=== PATIENT | male | born 1995 | race African-American/Black ===

== ENCOUNTER 2017-03-13 10:54 | Emergency (ER) | payer MEDICAID ==
[~2017-03-13] VITALS: Ht 170.2 cm; Wt 104.3 kg
[~2017-03-13 10:54] MED LIST: ACETAMINOPHEN500 M3 ORAL; ALBUTEROL SULF8.5 GM INH; AMOXICILLIN500 MG ORAL; AQUAPHOR HEALIN50 GM TP; AQUAPHOR OINTM396 GM TP; ATARAX25 MG ORAL; BENADRYL25 M3 PO; BENADRYL50 MG ORAL; EUCERIN CREAM15 GM TOP; EUCERIN INTENS250 ML TP; GENTAMICIN SUL3.5 GM OP; HYDROCORT-PRAMO30 G1 TOPIC; HYDROCORTISON28.4 G2 TP; HYDROCORTISONE28 G5 TP; IBUPROFEN600 MG ORAL; IBUPROFEN800 MG PO; KENALOG 0.1% CR15 GM APPLIC; KENALOG 0.1% CR15 GM TOPIC; NKM; NO HOME MEDS; PERMETHRIN60 GM TOPIC; PREDNISONE20 MG ORAL; PREDNISONE50 MG PO; ROBAXIN500 MG PO; TAMIFLU75 MG PO; TYLENOL #31 TAB PO; VICODIN 5-5001 EACH PO; ZANTAC150 MG ORAL; ZOFRAN4 MG ORAL
[2017-03-13] MEDS ORDERED: Ketorolac 30mg Inj IV ONE (12:30)
[2017-03-13 13:15] LABS: EOSINOPHILS % (AUTO) 1.2 % (0.0-3.0); LYMPHOCYTES % (AUTO) 8.6 % (20.0-45.0); MEAN CORPUSCULAR HEMOGLOBIN 28.4 PG (27.0-31.0); MEAN CORPUSCULAR HGB CONC 32.3 G/DL (32.0-36.0); MEAN CORPUSCULAR VOLUME 88 FL (80-99); MONOCYTES % (AUTO) 9.4 % (1.0-10.0); NEUTROPHILS % (AUTO) 78.8 % (45.0-75.0); PLATELET COUNT 247 K/UL (150-450); RED BLOOD COUNT 6.06 M/UL (4.70-6.10); RED CELL DISTRIBUTION WIDTH 12.7 % (11.6-14.8); WHITE BLOOD COUNT 11.6 K/UL (4.8-10.8)
[2017-03-13 13:17] LABS: TROPONIN I < 0.30 ng/mL (<=0.30)
[2017-03-13 13:22] LABS: ALANINE AMINOTRANSFERASE 12 U/L (3-41); ALBUMIN/GLOBULIN RATIO 1.4 (1.0-2.7); ANION GAP 14 (5-15); ASPARTATE AMINO TRANSFERASE 15 U/L (5-40); CALCIUM 10.2 mg/dL (8.6-10.2); CARBON DIOXIDE 28 mEQ/L (20-30); CHLORIDE 98 mEQ/L (98-107); GLOMERULAR FILTRATION RATE > 60 mL/min (>60); HEMOLYSIS 4; SODIUM 140 mEQ/L (135-145); TOTAL PROTEIN 7.8 g/dL (6.6-8.7)
[2017-03-13 13:33] LABS: CKMB < 1.5 ng/mL (< 6.7)
[2017-03-13 13:35] VITALS: BP 118/54
[2017-03-13 13:43] LABS: BILIRUBIN,DIRECT 0.3 mg/dL (0.1-0.3)
[2017-03-13 13:45] VITALS: BP 118/54
[2017-03-13] MEDS ORDERED: Ketorolac 60mg Inj IM ONE (13:45)
--- NOTE | 2017-03-13 16:35 | Diagnostic Imaging Report ---
Indication: PAIN Technique: One view of the chest Comparison: 12/15/2012 Findings: Lungs and pleural spaces are clear. Heart size is normal. No significant change Impression: No acute process
--- NOTE | 2017-03-14 16:36 | Emergency Room Report ---
History of Present Illness General Chief Complaint: General Complaint Source: Patient Present Illness HPI 21YOM with chest tightness for 3 days. C/o pain also to left side of chest. Recent URI symptoms. Denies fever/chills, abd pain, headache, urinary complaint. Also c/o right knee pain. Denies associated redness, warmth to right knee. Denies any trauma to chest or knee. Denies falls. Patient with known ADHD, not on medication, here with grandmother. Allergies: Coded Allergies: EGG (Verified Allergy, Intermediate, 09/09/12) PINEAPPLE (Verified Allergy, Intermediate, 09/09/12) Wheat (Verified Allergy, Intermediate, 09/09/12) LACTULOSE (Verified Allergy, Mild, 09/09/12) STRAWBERRY (Verified Allergy, Mild, 09/09/12) FISH CONTAINING PRODUCTS (Verified Allergy, Unknown, 11/06/15) Patient History Past Medical History: other - ADHD Past Surgical History: none Pertinent Family History: none Social History: Denies: alcohol use, drug use, smoking Immunizations: UTD Reviewed Nursing Documentation: PMH: Agreed, PSxH: Agreed Nursing Documentation-PMH Past Medical History: No History, Except For Hx Asthma: Yes Review of Systems All Other Systems: negative except mentioned in HPI Physical Exam Vital Signs Date Time Temp Pulse Resp B/P Pulse Ox O2 Delivery O2 Flow Rate FiO2 03/13/17 11:09 100.4 125 16 120/89 99 Room Air Sp02 EP Interpretation: reviewed, normal General Appearance: normal inspection, well appearing, no apparent distress, alert, GCS 15, non-toxic Head: normocephalic, atraumatic Eyes: bilateral eye EOMI, bilateral eye PERRL ENT: normal ENT inspection, hearing grossly normal, normal voice Neck: normal inspection, full range of motion, supple, no bony tend Respiratory: normal inspection, lungs clear, normal breath sounds, no respiratory distress, no retraction, no wheezing, other - Chest wall ttp. no rash, chest symmetrical, palpation of chest normal Cardiovascular #1: regular rate, rhythm, no edema Gastrointestinal: normal inspection, normal bowel sounds, non tender, soft, no guarding, no hernia Genitourinary: no CVA tenderness Musculoskeletal: normal inspection, back normal, normal range of motion, Bev' s Sign negative, other - Right knee: ROM intact. No redness, warmth or effusion Neurologic: normal inspection, alert, oriented x3, responsive, plastering supervisor III-XII nml as tested, motor strength/tone normal, speech normal Psychiatric: normal inspection, judgement/insight normal, mood/affect normal Skin: normal inspection, normal color, no rash Lymphatic: normal inspection Medical Decision Making Diagnostic Impression: Primary Impression: KNEE PAIN Additional Impression: Chest wall pain ER Course Labs: Mild leuks. Mild elevation in bili. Knee pain Atraumatic Exam unremarkable for septic joint Leukocytosis - in setting of chest wall pain, URI symptoms, possibly costochondritiis - Lungs CTAB. No wheezing to suggest asthma exac or bronchitis - CXR does not show PNA Elevation in bili Abd soft, NT/ND. Unlikely acute cholecystitis Patient eloped from ER before results could be discussed and plan coordinated for discharge, followup with PMD Chest X-Ray Diagnostic Results EP Interpretation: Yes Findings: no consolidation, no effusion, no pneumothorax, no acute cardiopulmonary disease Number of Views: 1 Last Vital Signs Date Time Temp Pulse Resp B/P Pulse Ox O2 Delivery O2 Flow Rate FiO2 03/13/17 13:45 99.9 109 20 118/54 98 Room Air Status: improved Disposition: ELOPED Condition: Unknown Referrals: NOT CHOSEN IPA/,REFERRING (PCP) YANNI YEPEZ M.D. Mar 14, 2017 16:36
--- NOTE | 2017-03-15 21:18 | Cardiology Report ---
APPROVED REPORT EKG Measurement Heart [id number] Normal sinus rhythm with sinus arrhythmia Normal ECG
== END 2017-03-13 13:45 | disposition left against medical advice (07) ==
LOC: EMR 12:00
DX: R07.89 Other chest pain (principal); M25.561 Pain in right knee; Z91.012 Allergy to eggs; Z91.013 Allergy to seafood; Z91.018 Allergy to other foods; F90.9 Attention-deficit hyperactivity disorder, unspecified type; J45.909 Unspecified asthma, uncomplicated
CPT/HCPCS: 36415; 71010; 80053; 82248; 82550; 82553; 83690; 84484; 85025; 93005; 99283

== ENCOUNTER 2017-07-12 17:06 | Emergency (ER) | payer MEDICAID ==
[~2017-07-12] VITALS: Ht 175.3 cm; Wt 111.1 kg
[2017-07-12] MEDS ORDERED: PREDNISONE20 MG ORAL (17:27)
[2017-07-12] MEDS ORDERED: TRIAMCINOLONE A80 G1 TP (17:27)
[2017-07-12 17:51] VITALS: BP 126/57
--- NOTE | 2017-07-13 14:05 | Emergency Room Report ---
History of Present Illness General Chief Complaint: Skin Rash/Abscess Source: Patient, Medical Record Present Illness HPI The patient is a 21-year-old male presenting for rash. He states that he has a history of eczema and states that this feels the same. Rashes been noticed on the neck, elbows, knees, and around the mouth. He states that he has tried over -the-counter hydrocortisone which has not been helping. He has been unable to follow up with his primary doctor. He denies any pain or other symptoms including N, V, F, chills Allergies: Coded Allergies: EGG (Verified Allergy, Intermediate, 09/09/12) PINEAPPLE (Verified Allergy, Intermediate, 09/09/12) Wheat (Verified Allergy, Intermediate, 09/09/12) LACTULOSE (Verified Allergy, Mild, 09/09/12) STRAWBERRY (Verified Allergy, Mild, 09/09/12) FISH CONTAINING PRODUCTS (Verified Allergy, Unknown, 11/06/15) Patient History Past Medical History: see triage record Pertinent Family History: none Reviewed Nursing Documentation: PMH: Agreed, PSxH: Agreed Nursing Documentation-PMH Past Medical History: No History, Except For Hx Asthma: Yes Review of Systems All Other Systems: negative except mentioned in HPI Physical Exam Vital Signs Date Time Temp Pulse Resp B/P Pulse Ox O2 Delivery O2 Flow Rate FiO2 07/12/17 17:11 97.5 81 16 118/41 99 Room Air Sp02 EP Interpretation: reviewed, normal General Appearance: no apparent distress, alert, GCS 15, non-toxic Head: normocephalic, atraumatic Musculoskeletal: back normal, gait/station normal, normal range of motion, non- tender Neurologic: alert, oriented x3, responsive, motor strength/tone normal, sensory intact, speech normal Psychiatric: judgement/insight normal, memory normal, mood/affect normal, no suicidal/homicidal ideation Skin: rash - Erythematous thickened lesions to neck, elbows, and knees. Also erythema periorally Lymphatic: no adenopathy Medical Decision Making PA Attestation Dr. Burnham is my supervising physician. Patient management was discussed with my supervising physician Diagnostic Impression: Primary Impression: Eczema ER Course The patient is a 21-year-old male presenting for rash. Ddx considered include but not limited to insect bite, contact dermatitis, eczema, cellulitis History and PE consistent with eczema. He will be placed on short term oral steroids and is given prescription for topical steroids. He was told he needs to Fu with dermatology due to severity of eczema. He agrees. ER precautions given Last Vital Signs Date Time Temp Pulse Resp B/P Pulse Ox O2 Delivery O2 Flow Rate FiO2 07/12/17 17:51 97.5 68 16 126/57 99 Room Air Status: improved Disposition: HOME, SELF-CARE Condition: Improved Scripts Prednisone* (PREDNISONE*) 20 Mg Tablet 20 MG ORAL DAILY, #7 TAB 0 Refills Prov: MARCO DIGGS 07/12/17 Triamcinolone Acetonide (TRIAMCINOLONE ACETONIDE) 80 Gm Oint...g. 80 GM TP BID, #80 GM Prov: MARCO DIGGS 07/12/17 Referrals: NOT CHOSEN IPA/,REFERRING (PCP) Patient Instructions: Eczema Additional Instructions: I discussed my findings with the patient. All questions and concerns have been answered. Treatment and medication compliance have been addressed. I advised the patient that they need to follow up with PMD in 3-5 days. Return to ED if symptoms worsen, new symptoms arise, or if needed for any reason. Patient verbalized understanding of discharge instructions. Please follow up with dermatology as discussed MARCO DIGGS Jul 13, 2017 14:05
== END 2017-07-12 17:51 | disposition home or self-care (01) ==
LOC: EMR 17:40
DX: L30.9 Dermatitis, unspecified (principal); J45.909 Unspecified asthma, uncomplicated; Z91.012 Allergy to eggs; Z91.018 Allergy to other foods
CPT/HCPCS: 99284

== ENCOUNTER 2017-08-25 13:48 | Emergency (ER) | payer MEDICAID ==
[~2017-08-25] VITALS: Ht 175.3 cm; Wt 111.1 kg
[~2017-08-25 13:48] MED LIST changes: +TRIAMCINOLONE A80 G1 TP
--- NOTE | 2017-08-25 14:40 | Emergency Room Report ---
History of Present Illness General Chief Complaint: Laceration Source: Patient Present Illness HPI 21-year-old male presents emergency department with 2 lacerations to the index and left ring finger on the palmar aspect. Pt is right hand dominant. Patient states that 2 days ago he was washing dishes and he grabbed a knife on the wrong side. Patient denies bleeding at this time states he is burning sensation that he rates as 6/10 in severity. Patient denies erythema. Pt. states he is up-to-date with tetanus vaccinations. Denies taking blood thinning medications. He is requesting refill of his triamcinolone cream that he uses for his eczema. Denies numbness tingling or loss of sensation or gross motor movements of the extremities, incontinence of bowel or bladder. Denies CP , Palpitations, LOC, AMS, dizziness, Changes in Vision, Sensation, paresthesias , or a sudden severe headache. Allergies: Coded Allergies: EGG (Verified Allergy, Intermediate, 09/09/12) PINEAPPLE (Verified Allergy, Intermediate, 09/09/12) Wheat (Verified Allergy, Intermediate, 09/09/12) LACTULOSE (Verified Allergy, Mild, 09/09/12) STRAWBERRY (Verified Allergy, Mild, 09/09/12) FISH CONTAINING PRODUCTS (Verified Allergy, Unknown, 11/06/15) Patient History Past Medical History: see triage record Past Surgical History: none Pertinent Family History: none Immunizations: UTD Reviewed Nursing Documentation: PMH: Agreed, PSxH: Agreed Nursing Documentation-PMH Past Medical History: No History, Except For Hx Asthma: Yes Review of Systems All Other Systems: negative except mentioned in HPI Physical Exam Vital Signs Date Time Temp Pulse Resp B/P (MAP) Pulse Ox O2 Delivery O2 Flow Rate FiO2 08/25/17 14:09 97.9 75 18 120/86 98 Room Air Sp02 EP Interpretation: reviewed, normal General Appearance: no apparent distress, alert, GCS 15, non-toxic Head: normocephalic, atraumatic Eyes: bilateral eye normal inspection, bilateral eye PERRL ENT: hearing grossly normal, normal voice Neck: full range of motion Respiratory: lungs clear, normal breath sounds, speaking full sentences Cardiovascular #1: regular rate, rhythm, normal capillary refill Musculoskeletal: back normal, gait/station normal, normal range of motion - able to flex against resistance. , non-tender Neurologic: alert, oriented x3, responsive, motor strength/tone normal, sensory intact, speech normal Psychiatric: judgement/insight normal, memory normal, mood/affect normal Skin: normal color, warm/dry, well hydrated, rash - dry plaques to the flexural surfaces of the elbows, forearms, and knuckles bilaterally. , laceration - two finger lacerations: 1.5cm linear laceration to the palmar aspect of the left index finger, and 1.5cm linear laceration of the left ring finger, no bleeding at this time. FROM against resistance, no evidence of infeciton or fb. Lymphatic: no adenopathy Procedures Splinting Splinting #1: Consent: Verbal Location: left index finger Pre-Made Type: metal Splint: finger splint Pre-Proc Neuro Vasc Exam: normal Post-Proc Neuro Vasc Exam: normal Patient Tolerated: Well Complications: None Splinting #2: Consent: Verbal Location: left ring finger Pre-Made Type: metal Splint: finger splint Pre-Proc Neuro Vasc Exam: normal Post-Proc Neuro Vasc Exam: normal Patient Tolerated: Well Complications: None Laceration/Wound Repair Laceration/Wound Repair #1: Consent: Verbal Wound Location: upper extremity - left index Wound's Depth, Shape: superficial, linear Wound Length (cm): 1 Wound Explored: clean Irrigated w/ Saline (ccs): 500 Wound Repaired With: Steri-strips Sterile Dressing Applied?: Yes Splint Applied?: Yes Type of Splint Applied: figner splint. Sling Applied?: No Patient Tolerated: Well Complications: None Laceration/Wound Repair #2: Consent: Verbal Wound Location: upper extremity - left ring finger Wound's Depth, Shape: superficial, linear Wound Length (cm): 1 Wound Explored: clean Irrigated w/ Saline (ccs): 500 Wound Repaired With: Steri-strips Sterile Dressing Applied?: Yes Splint Applied?: Yes Type of Splint Applied: finger splint Sling Applied?: No Patient Tolerated: Well Complications: None Medical Decision Making PA Attestation Dr. Howell is my supervising Physician whom patient management has been discussed with. Diagnostic Impression: Primary Impression: Laceration Additional Impression: Eczema Qualified Codes: L20.82 - Flexural eczema ER Course 21-year-old male presents emergency department with 2 lacerations to the index and left ring finger on the palmar aspect. Pt is right hand dominant. Patient states that 2 days ago he was washing dishes and he grabbed a knife on the wrong side. Patient denies bleeding at this time states he is burning sensation that he rates as 6/10 in severity. Patient denies erythema. Pt. states he is up-to-date with tetanus vaccinations. Denies taking blood thinning medications. He is requesting refill of his triamcinolone cream that he uses for his eczema. Denies numbness tingling or loss of sensation or gross motor movements of the extremities, incontinence of bowel or bladder. Denies CP , Palpitations, LOC, AMS, dizziness, Changes in Vision, Sensation, paresthesias , or a sudden severe headache. Ddx considered but are not limited to laceration, tendon injury, cellulitis, amputation Vital signs: are WNL, pt. is afebrile H&PE are most consistent with: two finger lacerations each 1.5 cm in length. ORDERS: none required at this time, the diagnosis is clinical ED INTERVENTIONS: - The wound was copiously irrigated with normal saline, and explored for foreign body for which no FB was found. - The wound was approximated with Benzoin and steri-strips. Discussed with patient: That we make every effort to approximate the laceration as best as we can so that scarring will be as cosmetically pleasing as possible with our limited cosmetic skill set in the Emergency dept. Regardless of our best efforts there will be scarring after laceration repair. The extent of scarring is unknown at this time. DISCHARGE: At this time pt. is stable for d/c to home. Will provide printed patient care instructions, and any necessary prescriptions. Care plan and follow up instructions have been discussed with the patient prior to discharge. Last Vital Signs Date Time Temp Pulse Resp B/P (MAP) Pulse Ox O2 Delivery O2 Flow Rate FiO2 08/25/17 14:09 97.9 75 18 120/86 98 Room Air Disposition: HOME, SELF-CARE Condition: Stable Scripts Bacitracin/Polymyxin B Sulfate (BACITRACIN-POLYMYXIN OINTMENT) 28.35 Gm Oint...g. 1 APPLIC TP BID, #28.3 GM Prov: Kylah Hidalgo P.AEvelio 08/25/17 Cephalexin* (KEFLEX*) 500 Mg Capsule 500 MG ORAL EVERY 12 HOURS, #14 CAP 0 Refills Prov: Kylah Hidalgo 08/25/17 Referrals: NON PHYSICIAN (PCP) Departure Forms: Return to Work Return to Work Date: Aug 26, 2017 Work Restrictions: No Heavy Lifting Other Restrictions: limited use of Left hand, keep clean and dry. x 1 week. Return to Full Activity: Sep 02, 2017 Patient Instructions: Nonsutured Laceration Care Additional Instructions: Take medications as directed. Follow up with a Primary Care Provider in 3-5 days, even if your symptoms have resolved. --Please review list of primary care clinics, if you do not already have a primary care provider Return sooner to ED if new symptoms occur, or current symptoms become worse. - Please note that this Emergency Department Report was dictated using [employer] operator technology software, occasionally this can lead to erroneous entry secondary to interpretation by the dictation equipment. Kylah Hidalgo Aug 25, 2017 14:40
[2017-08-25] MEDS ORDERED: CEPHALEXIN500 MG ORAL (14:58)
[2017-08-25] MEDS ORDERED: BACITRACIN-P28.35 GM TP (14:58)
[2017-08-25 15:08] VITALS: BP 120/77
== END 2017-08-25 15:10 | disposition home or self-care (01) ==
LOC: EMR 14:20
DX: S61.211A Laceration without foreign body of left index finger without damage to nail, initial encounter (principal); S61.215A Laceration without foreign body of left ring finger without damage to nail, initial encounter; W26.0XXA Contact with knife, initial encounter; Y93.G1 Activity, food preparation and clean up; Y92.89 Other specified places as the place of occurrence of the external cause; L30.9 Dermatitis, unspecified; J45.909 Unspecified asthma, uncomplicated; Z91.012 Allergy to eggs; Z91.018 Allergy to other foods
CPT/HCPCS: 12001; 99284; Z7502

== ENCOUNTER 2017-10-11 03:09 | Emergency (ER) | payer MEDICAID ==
[~2017-10-11] VITALS: Ht 175.3 cm; Wt 111.1 kg
[~2017-10-11 03:09] MED LIST changes: +BACITRACIN-P28.35 GM TP; +CEPHALEXIN500 MG ORAL
[2017-10-11] MEDS ORDERED: DIPHENHYDRAMINE25 M1 ORAL (03:30)
[2017-10-11] MEDS ORDERED: PREDNISONE20 MG ORAL (03:30)
--- NOTE | 2017-10-11 03:31 | Emergency Room Report ---
History of Present Illness General Chief Complaint: Skin Rash/Abscess Source: Patient Present Illness HPI Is a 22-year-old male with a history of long-standing eczema. He said his been exacerbating for the last 3 weeks. No nausea no vomiting. Cmpu-xjg-ajgwnia steroid cream work initially but not anymore. [place] very itchy. He said Benadryl help when his mom and when he was little. Has not take anything for it. Not seen any Dr. Denies any fever chills denies any chest pain. Allergies: Coded Allergies: EGG (Verified Allergy, Intermediate, 09/09/12) PINEAPPLE (Verified Allergy, Intermediate, 09/09/12) Wheat (Verified Allergy, Intermediate, 09/09/12) LACTULOSE (Verified Allergy, Mild, 09/09/12) STRAWBERRY (Verified Allergy, Mild, 09/09/12) FISH CONTAINING PRODUCTS (Verified Allergy, Unknown, 11/06/15) Patient History Past Medical History: see triage record, old chart reviewed Past Surgical History: other Pertinent Family History: none Social History: Denies: smoking Immunizations: other Reviewed Nursing Documentation: PMH: Agreed, PSxH: Agreed Nursing Documentation-PMH Hx Asthma: Yes Review of Systems Eye: Denies: eye pain, blurred vision ENT: Denies: ear pain, nose congestion, throat swelling Respiratory: Denies: cough, shortness of breath Cardiovascular: Denies: chest pain, palpitations Gastrointestinal: Denies: abdominal pain, diarrhea, nausea, vomiting Musculoskeletal: Denies: back pain, joint pain Skin: Denies: rash Neurological: Denies: headache, numbness Endocrine: Denies: increased thirst, increased urine Hematologic/Lymphatic: Denies: easy bruising All Other Systems: negative except mentioned in HPI Physical Exam Vital Signs Date Time Temp Pulse Resp B/P (MAP) Pulse Ox O2 Delivery O2 Flow Rate FiO2 10/11/17 03:11 97.7 91 16 127/72 98 Room Air vitals normal Sp02 EP Interpretation: reviewed, normal General Appearance: well appearing, no apparent distress, alert Head: normocephalic, atraumatic Eyes: bilateral eye PERRL, bilateral eye EOMI ENT: hearing grossly normal, normal pharynx Neck: full range of motion, supple, no meningismus Respiratory: chest non-tender, lungs clear, normal breath sounds Cardiovascular #1: regular rate, rhythm, no murmur Gastrointestinal: normal bowel sounds, non tender, no mass, no organomegaly, no bruit, non-distended Musculoskeletal: back normal, gait/station normal, normal range of motion Psychiatric: mood/affect normal Skin: warm/dry, rash - diffuse eczema. There is excoriation from scratching. Medical Decision Making Diagnostic Impression: Primary Impression: Eczema ER Course This patient presents with eczema exacerbation. He would benefit from seeing a wood heel flap rubber or geomorphology teacher. We'll put on short course of steroid. No evidence of secondary infection. Last Vital Signs Date Time Temp Pulse Resp B/P (MAP) Pulse Ox O2 Delivery O2 Flow Rate FiO2 10/11/17 03:11 97.7 91 16 127/72 98 Room Air Status: improved Disposition: HOME, SELF-CARE Condition: Stable Scripts Prednisone* (PREDNISONE*) 20 Mg Tablet 60 MG ORAL DAILY, #15 TAB Prov: ROBERT LEGGETT M.D. 10/11/17 Diphenhydramine Hcl* (DIPHENHYDRAMINE HCL*) 25 Mg Capsule 50 MG ORAL Q6H Y for Itching, #30 CAP 0 Refills Prov: ROBERT LEGGETT M.D. 10/11/17 Additional Instructions: Followup with your doctor in a week. You may benefit from referral to see a wood heel flap rubber or a geomorphology teacher. Return if worse. ROBERT LEGGETT M.D. Oct 11, 2017 03:30
[2017-10-11 03:38] VITALS: BP 127/72
== END 2017-10-11 03:39 | disposition home or self-care (01) ==
LOC: EMR 03:26
DX: L30.9 Dermatitis, unspecified (principal); J45.909 Unspecified asthma, uncomplicated; Z91.012 Allergy to eggs; Z91.018 Allergy to other foods
CPT/HCPCS: 99284

== ENCOUNTER 2017-12-31 05:15 | Emergency (ER) | payer MEDICAID, OTHER ==
[~2017-12-31] VITALS: Ht 175.3 cm; Wt 117.9 kg
[~2017-12-31 05:15] MED LIST changes: +DIPHENHYDRAMINE25 M1 ORAL
--- NOTE | 2017-12-31 05:23 | Emergency Room Report ---
History of Present Illness General Chief Complaint: Flu Like Symptoms Source: Patient Present Illness HPI 22YOM walk in with "I think I have the flu" c/o dry cough, nasal congestion, rhinorrhea, and "weak" for 2 days since being outside without a jacket 3 days ago. History of asthma, non-smoker Doesnt have his pump for long time Denies fever/chills Got flu vaccine his year Allergies: Coded Allergies: EGG (Verified Allergy, Intermediate, 09/09/12) PINEAPPLE (Verified Allergy, Intermediate, 09/09/12) Wheat (Verified Allergy, Intermediate, 09/09/12) LACTULOSE (Verified Allergy, Mild, 09/09/12) STRAWBERRY (Verified Allergy, Mild, 09/09/12) FISH CONTAINING PRODUCTS (Verified Allergy, Unknown, 11/06/15) Patient History Past Medical History: asthma Past Surgical History: none Pertinent Family History: none Social History: Denies: smoking, alcohol use, drug use Immunizations: UTD Reviewed Nursing Documentation: PMH: Agreed, PSxH: Agreed Nursing Documentation-PMH Hx Asthma: Yes Review of Systems All Other Systems: negative except mentioned in HPI Physical Exam Vital Signs Date Time Temp Pulse Resp B/P (MAP) Pulse Ox O2 Delivery O2 Flow Rate FiO2 12/31/17 05:16 100.8 119 16 109/69 97 Room Air Sp02 EP Interpretation: reviewed, normal General Appearance: normal inspection, well appearing, no apparent distress, alert, GCS 15, non-toxic Head: normocephalic, atraumatic Eyes: bilateral eye PERRL, bilateral eye EOMI ENT: normal ENT inspection, hearing grossly normal, normal pharynx, no angioedema, normal voice, TMs + canals normal, uvula midline, moist mucus membranes Neck: normal inspection, full range of motion, supple, thyroid normal, no meningismus, no bony tend Respiratory: normal inspection, lungs clear, normal breath sounds, no rhonchi, no respiratory distress, no retraction, no accessory muscle use, speaking full sentences, wheezing Cardiovascular #1: regular rate, rhythm, no edema, no JVD, normal capillary refill Gastrointestinal: normal inspection, normal bowel sounds, non tender, soft, no mass, no peritonitis, non-distended, no guarding, no hernia, no pulsatile mass Genitourinary: no CVA tenderness Musculoskeletal: normal inspection, back normal, normal range of motion, no calf tenderness, pelvis stable, Bev's Sign negative Neurologic: normal inspection, alert, oriented x3, responsive, winding department supervisor III-XII nml as tested, motor strength/tone normal, cerebellar normal, normal gait, speech normal Psychiatric: normal inspection, judgement/insight normal, mood/affect normal, no suicidal/homicidal ideation, no delusions Skin: normal inspection, normal color, no rash Lymphatic: normal inspection, no adenopathy Medical Decision Making Diagnostic Impression: Primary Impression: URI (upper respiratory infection) Qualified Codes: J06.9 - Acute upper respiratory infection, unspecified Additional Impression: Asthma exacerbation Qualified Codes: J45.21 - Mild intermittent asthma with (acute) exacerbation ER Course Likely URI given nasal congestion, rhinorrhea, dry cough No fever/chills or myalgias to consider flu, plus he did get flu vaccine Mild wheezing on exam VSS, Afebrile Resolved with 1 neb ER course: Patient has remained stable during ED stay. Disposition: Patient is to be discharged to home. Prescriptions given are ventolin, flonase, prednisone Patient is instructed to follow up with their primary care doctor within 5 days. . Strict return precautions discussed with patient such as fever, chills, worsening/severe pain, nausea, vomiting, which may indicate severe illness. Patient verbalizes understanding and agrees with plan. Please note that this Emergency Department Report was dictated using [employer] analyst technology software, occasionally this can lead to erroneous entry secondary to interpretation by the dictation equipment Last Vital Signs Date Time Temp Pulse Resp B/P (MAP) Pulse Ox O2 Delivery O2 Flow Rate FiO2 12/31/17 05:16 100.8 119 16 109/69 97 Room Air Status: improved Disposition: HOME, SELF-CARE Scripts Prednisone* (PREDNISONE*) 20 Mg Tablet 40 MG ORAL DAILY for 3 Days, #6 TAB Prov: YANNI YEPEZ M.D. 12/31/17 Fluticasone Propionate (Flonase Allergy Relief) 9.9 Ml [place].susp 9.9 ML NS BID for 7 Days, #1 UNIT Prov: YANNI YEPEZ M.D. 12/31/17 Albuterol Sulfate (VENTOLIN HFA) 18 Gm Hfa.aer.ad 1 PUFF INH EVERY 6 HOURS for SOB, cough, #18 GM 0 Refills Prov: YANNI YEPEZ M.D. 12/31/17 YANNI YEPEZ M.D. Dec 31, 2017 05:23
[2017-12-31] MEDS ORDERED: FLONASE ALLERG9.9 ML NS (05:29)
[2017-12-31] MEDS ORDERED: VENTOLIN HFA18 GM INH (05:29)
[2017-12-31] MEDS ORDERED: PREDNISONE20 MG ORAL (05:29)
[2017-12-31 05:30] VITALS: BP 109/69
[2017-12-31 06:00] VITALS: BP 109/69
[2017-12-31] MEDS ORDERED: Albuterol ud Inhalation HHN ONE (06:00)
== END 2017-12-31 06:00 | disposition home or self-care (01) ==
LOC: EMR 05:37
DX: J06.9 Acute upper respiratory infection, unspecified (principal); Z91.018 Allergy to other foods
CPT/HCPCS: 94640; 99283

== ENCOUNTER 2018-01-21 21:39 | Emergency (ER) | payer OTHER ==
[~2018-01-21] VITALS: Ht 175.3 cm; Wt 108.9 kg
[~2018-01-21 21:39] MED LIST changes: +FLONASE ALLERG9.9 ML NS; +VENTOLIN HFA18 GM INH
[2018-01-21] MEDS ORDERED: PREDNISONE20 MG ORAL (22:02)
--- NOTE | 2018-01-21 22:02 | Emergency Room Report ---
History of Present Illness General Chief Complaint: Pain Source: Patient Present Illness HPI This is a 22-year-old male with a history of eczema. He presents with exacerbation of his eczema. Has been ongoing for about 2-3 weeks now. He said that his is that his rash to his body. He tried [id number] medication without relief. He has not seen his new doctor yet. No fever chills but no nausea no vomiting. Skin is dry and itching. Allergies: Coded Allergies: EGG (Verified Allergy, Intermediate, 09/09/12) PINEAPPLE (Verified Allergy, Intermediate, 09/09/12) Wheat (Verified Allergy, Intermediate, 09/09/12) LACTULOSE (Verified Allergy, Mild, 09/09/12) STRAWBERRY (Verified Allergy, Mild, 09/09/12) FISH CONTAINING PRODUCTS (Verified Allergy, Unknown, 11/06/15) Uncoded Allergies: PEANUTS (Allergy, Intermediate, 01/21/18) Patient History Past Medical History: see triage record, old chart reviewed Past Surgical History: none Pertinent Family History: none Social History: Denies: smoking Immunizations: other Reviewed Nursing Documentation: PMH: Agreed, PSxH: Agreed Nursing Documentation-PMH Hx Asthma: Yes History Of Psychiatric Problem: Yes - ADHD Review of Systems Eye: Denies: eye pain, blurred vision ENT: Denies: ear pain, nose congestion, throat swelling Respiratory: Denies: cough, shortness of breath Cardiovascular: Denies: chest pain, palpitations Gastrointestinal: Denies: abdominal pain, diarrhea, nausea, vomiting Musculoskeletal: Denies: back pain, joint pain Skin: Reports: rash Neurological: Denies: headache, numbness Endocrine: Denies: increased thirst, increased urine Hematologic/Lymphatic: Denies: easy bruising All Other Systems: negative except mentioned in HPI Physical Exam Vital Signs Date Time Temp Pulse Resp B/P (MAP) Pulse Ox O2 Delivery O2 Flow Rate FiO2 01/21/18 21:48 98.1 82 14 121/74 99 Room Air 98.1 vitals normal Sp02 EP Interpretation: reviewed, normal General Appearance: well appearing, no apparent distress, alert Head: normocephalic, atraumatic Eyes: bilateral eye PERRL, bilateral eye EOMI ENT: hearing grossly normal, normal pharynx Neck: full range of motion, supple, no meningismus Respiratory: chest non-tender, lungs clear, normal breath sounds Cardiovascular #1: regular rate, rhythm, no murmur Gastrointestinal: normal bowel sounds, non tender, no mass, no organomegaly, no bruit, non-distended Musculoskeletal: back normal, gait/station normal, normal range of motion Neurologic: alert, oriented x3 Psychiatric: mood/affect normal Skin: warm/dry, other - Skin is dry with eczema. No infection Medical Decision Making Diagnostic Impression: Primary Impression: Eczema ER Course Patient with eczema exacerbation. No evidence of cellulitis. No evidence of necrotizing fasciitis. We'll discharge home. We'll start dose of prednisone. He will need to see a expansion joint finisher. May benefit from immunomodulators. Last Vital Signs Date Time Temp Pulse Resp B/P (MAP) Pulse Ox O2 Delivery O2 Flow Rate FiO2 01/21/18 21:48 98.1 82 14 121/74 99 Room Air 98.1 Status: unchanged Disposition: HOME, SELF-CARE Condition: Stable Scripts Prednisone* (PREDNISONE*) 20 Mg Tablet 40 MG ORAL DAILY, #14 TAB Prov: ROBERT LEGGETT M.D. 01/21/18 Additional Instructions: Followup your DrEvelio in 7 days. You know need a referral to see a expansion joint finisher. Return if symptom worsen. ROBERT LEGGETT M.D. Jan 21, 2018 22:02
[2018-01-21 22:05] VITALS: BP 121/74
[2018-01-21 22:09] VITALS: BP 121/74
== END 2018-01-21 22:09 | disposition home or self-care (01) ==
LOC: EMR 22:03
DX: L30.9 Dermatitis, unspecified (principal); J45.909 Unspecified asthma, uncomplicated; F90.9 Attention-deficit hyperactivity disorder, unspecified type
CPT/HCPCS: 99283

== ENCOUNTER 2018-02-11 14:51 | Emergency (ER) | payer OTHER ==
[~2018-02-11] VITALS: Ht 175.3 cm; Wt 112.0 kg
--- NOTE | 2018-02-11 15:30 | Emergency Room Report ---
History of Present Illness General Chief Complaint: Skin Rash/Abscess Source: Patient Present Illness HPI 22 YO Male presents to the ED c/o rash all over his body x 2 weeks. 10/10 in severity itching. pt. reports taking prednisone with no appreciable relief or improvement of his symptoms. Patient states that he has had a history of eczema in the past she has an appointment scheduled with his primary care doctor for dermatology evaluation however his primary care appointment is not until the of this month. He denies fevers, chills, recent travel. Denies lesions/rashes elsewhere on the body. Denies new medications or body washes or creams. Denies swelling of the lips, tongue , throat or airway. Denies wheezing , or shortness of breath. Denies recent travel, recent illness or ill contacts. denies blisters, oral lesions, or sloughing of the skin. Patient denies history of frequent upper respiratory infections or history of autoimmune diseases. Allergies: Coded Allergies: EGG (Verified Allergy, Intermediate, 09/09/12) PINEAPPLE (Verified Allergy, Intermediate, 09/09/12) Wheat (Verified Allergy, Intermediate, 09/09/12) LACTULOSE (Verified Allergy, Mild, 09/09/12) STRAWBERRY (Verified Allergy, Mild, 09/09/12) FISH CONTAINING PRODUCTS (Verified Allergy, Unknown, 11/06/15) Uncoded Allergies: PEANUTS (Allergy, Intermediate, 01/21/18) Patient History Past Medical History: see triage record, asthma Past Surgical History: none Pertinent Family History: none Immunizations: UTD Reviewed Nursing Documentation: PMH: Agreed, PSxH: Agreed Nursing Documentation-PMH Past Medical History: No History, Except For Hx Asthma: Yes Review of Systems All Other Systems: negative except mentioned in HPI Physical Exam Vital Signs Date Time Temp Pulse Resp B/P (MAP) Pulse Ox O2 Delivery O2 Flow Rate FiO2 02/11/18 14:57 98.2 70 18 129/76 98 Room Air 98.2 Sp02 EP Interpretation: reviewed, normal General Appearance: no apparent distress, alert, GCS 15, non-toxic Head: normocephalic, atraumatic, other - rash: see skin note Eyes: bilateral eye normal inspection, bilateral eye PERRL ENT: hearing grossly normal, no angioedema, normal voice, other - no swelling of the lips or tongue Neck: full range of motion Respiratory: chest non-tender, lungs clear, normal breath sounds, speaking full sentences Cardiovascular #1: regular rate, rhythm, no edema, normal capillary refill Gastrointestinal: non tender Musculoskeletal: back normal, gait/station normal, normal range of motion, non- tender Neurologic: alert, oriented x3, responsive, motor strength/tone normal, sensory intact, speech normal, grossly normal Psychiatric: judgement/insight normal Skin: normal color, warm/dry, well hydrated, rash - Rash covering 90% of BSA dry scaly plaque no erythema, blisters or vesicles. Skin appears thickened. Lymphatic: no adenopathy Medical Decision Making PA Attestation Dr. Burnham is my supervising Physician whom patient management has been discussed with. Diagnostic Impression: Primary Impression: Eczema Additional Impression: Rash and other nonspecific skin eruption ER Course Pt. presents to the ED c/o rash all over his body x 2 weeks. 10/10 in severity itching. pt. reports taking prednisone with no appreciable relief or improvement of his symptoms. Patient states that he has had a history of eczema in the past she has an appointment scheduled with his primary care doctor for dermatology evaluation however his primary care appointment is not until the of this month. He denies fevers, chills, recent travel. Denies lesions/rashes elsewhere on the body. Denies new medications or body washes or creams. Denies swelling of the lips, tongue , throat or airway. Denies wheezing , or shortness of breath. Denies recent travel, recent illness or ill contacts. denies blisters, oral lesions, or sloughing of the skin. Ddx considered but are not limited to cellulitis, scabies, shingles, varicella, dermatitis, urticaria, eczema, tinea, viral exanthem, SJS, scleroderma Vital signs: are WNL, pt. is afebrile H&PE are most consistent with severe eczema generalized on almost all skin service area. No evidence of angioedema, allergic reaction or impending airway compromise. No evidence of infection. also suspicious for Possible scleroderma- needs Underwriting Service Representative eval and definitive diagnosis. ORDERS: none required at this time, the diagnosis is clinical ED INTERVENTIONS: None required at this time. -Discussed with patient that due to just finishing a seven-day course of prednisone I do not want him to experience adrenal insufficiency by prescribing more steroid when he had very minimal improvement of his symptoms with this intervention. Discussed with patient that ultimately he needs to see a cd reactor operator for definitive diagnosis and treatment management discussed with him that he may need oral medications to take regularly. DISCHARGE: At this time pt. is stable for d/c to home. Will provide printed patient care instructions, and any necessary prescriptions. Care plan and follow up instructions have been discussed with the patient prior to discharge. Last Vital Signs Date Time Temp Pulse Resp B/P (MAP) Pulse Ox O2 Delivery O2 Flow Rate FiO2 02/11/18 14:57 98.2 70 18 129/76 98 Room Air 98.2 Disposition: HOME, SELF-CARE Condition: Stable Scripts Bacitracin/Polymyxin B Sulfate (BACITRACIN-POLYMYXIN OINTMENT) 28.35 Gm Oint...g. 1 APPLIC TP BID, #28.3 GM Prov: Kylah Hidalgo 02/11/18 Triamcinolone Acet (Triamcinolone Acetonide) 60 Ml Lotion 60 ML TOPIC TID, #120 ML 2 Refills Prov: Kylah Hidalgo 02/11/18 Hydroxyzine HCl (Hydroxyzine HCl) 25 Mg Tablet 25 MG ORAL FOUR TIMES A DAY, #20 TAB Prov: Kylah Hidalgo 02/11/18 Patient Instructions: Rash Additional Instructions: Take medications as directed. Urgent Dermatology evaluation and management -- It is recommended that you are evaluated by a cd reactor operator due to the extent of your disease, and no response to both conservative and standard primary treatments ( steroid creams and oral prednisone.) evaluation is necessary for correct identification, to prevent worsening of your symptoms which can lead to infection. Refrain from scratching as much as possible, monitor your skin daily for signs of infection such as redness, hot to the touch. Return sooner to ED if new symptoms occur, or current symptoms become worse. Do not drink alcohol, drive, or operate heavy machinery while taking Hydroxyzine / Atarax as this may cause drowsiness. - Please note that this Emergency Department Report was dictated using [employer] room worker technology software, occasionally this can lead to erroneous entry secondary to interpretation by the dictation equipment. Kylah Hidalgo Feb 11, 2018 15:30
[2018-02-11] MEDS ORDERED: ATARAX25 MG ORAL (15:33)
[2018-02-11] MEDS ORDERED: KENALOG 0.1% LO60 ML TOPIC (15:33)
[2018-02-11] MEDS ORDERED: BACITRACIN-P28.35 GM TP (15:34)
[2018-02-11 19:31] VITALS: BP 129/76
[2018-02-11 19:33] VITALS: BP 129/76
== END 2018-02-11 16:00 | disposition home or self-care (01) ==
LOC: EMR 15:51
DX: L30.9 Dermatitis, unspecified (principal); J45.909 Unspecified asthma, uncomplicated; Z91.012 Allergy to eggs; Z91.010 Allergy to peanuts; Z91.018 Allergy to other foods
CPT/HCPCS: 99284

== ENCOUNTER 2018-03-20 12:44 | Emergency (ER) | payer OTHER ==
[~2018-03-20] VITALS: Ht 175.3 cm; Wt 117.9 kg
[~2018-03-20 12:44] MED LIST changes: +KENALOG 0.1% LO60 ML TOPIC
[2018-03-20 13:08] VITALS: BP 129/75
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
[2018-03-20] MEDS ORDERED: KENALOG 0.1% LO60 ML APPLIC (13:21)
[2018-03-20 13:30] VITALS: BP 129/75
== END 2018-03-20 13:30 | disposition home or self-care (01) ==
LOC: EMR 13:28
DX: L30.9 Dermatitis, unspecified (principal); J45.909 Unspecified asthma, uncomplicated; Z91.012 Allergy to eggs; Z91.010 Allergy to peanuts; Z91.018 Allergy to other foods
CPT/HCPCS: 99283

== ENCOUNTER 2018-06-16 22:45 | Emergency (ER) | payer OTHER ==
[~2018-06-16] VITALS: Ht 175.3 cm; Wt 111.1 kg
[~2018-06-16 22:45] MED LIST changes: +KENALOG 0.1% LO60 ML APPLIC
[2018-06-16] MEDS ORDERED: NKM (22:55)
[2018-06-16 23:05] VITALS: BP 129/71
[2018-06-16] MEDS ORDERED: PREDNISONE20 MG ORAL (23:25)
[2018-06-16] MEDS ORDERED: IBUPROFEN600 MG ORAL (23:25)
[2018-06-16] MEDS ORDERED: AUGMENTIN 875-1 EAC1 ORAL (23:25)
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
[2018-06-17] MEDS ORDERED: BISACODYL5 MG RECTAL (00:11)
[2018-06-17] MEDS ORDERED: ACETAMINOP160 MG/5 M GT (00:11)
[2018-06-17] MEDS ORDERED: DOCUSATE SODIU100 MG GT (00:11)
[2018-06-17] MEDS ORDERED: SPIRONOLACTONE25 MG ORAL (00:11)
[2018-06-17] MEDS ORDERED: CATAPRES0.1 MG GT (00:11)
[2018-06-17] MEDS ORDERED: CALCIUM CARBON650 M2 GT (00:11)
[2018-06-17] MEDS ORDERED: BACLOFEN10 MG GT (00:11)
[2018-06-17] MEDS ORDERED: VITAMIN D1000 UNI1 GT (00:11)
[2018-06-17] MEDS ORDERED: CRANBERRY200 M1 PO (00:11)
[2018-06-17] MEDS ORDERED: DUONEB 0.5-3(2.53 ML HHN (00:11)
[2018-06-17] MEDS ORDERED: SPIRONOLACTONE25 MG GT (00:11)
[2018-06-17] MEDS ORDERED: ARTIFICIAL TEA1 EAC2 OP (00:11)
[2018-06-17 00:30] VITALS: BP 129/71
== END 2018-06-17 00:30 | disposition home or self-care (01) ==
LOC: EMR 23:07
DX: J02.9 Acute pharyngitis, unspecified (principal); J45.909 Unspecified asthma, uncomplicated; Z91.012 Allergy to eggs; Z91.018 Allergy to other foods; Z91.010 Allergy to peanuts
CPT/HCPCS: 99283

== ENCOUNTER 2018-12-30 22:27 | Emergency (ER) | payer OTHER ==
[~2018-12-30] VITALS: Ht 175.3 cm; Wt 113.4 kg
[~2018-12-30 22:27] MED LIST changes: +ACETAMINOP160 MG/5 M GT; +ARTIFICIAL TEA1 EAC2 OP; +AUGMENTIN 875-1 EAC1 ORAL; +BACLOFEN10 MG GT; +BISACODYL5 MG RECTAL; +CALCIUM CARBON650 M2 GT; +CATAPRES0.1 MG GT; +CRANBERRY200 M1 PO; +DOCUSATE SODIU100 MG GT; +DUONEB 0.5-3(2.53 ML HHN; +SPIRONOLACTONE25 MG GT; +SPIRONOLACTONE25 MG ORAL; +VITAMIN D1000 UNI1 GT
--- NOTE | 2018-12-30 22:38 | NUR ---
ED Nurse Note: Pt woke up this morning and found his neck has big area of rash. Pt is AO x 4times, VSS, on room air no distress. KELLYD seen Pt at bedside.
[2018-12-30 22:39] VITALS: BP 128/88
[2018-12-30] MEDS ORDERED: MUPIROCIN22 GM TOPIC (22:48)
[2018-12-30] MEDS ORDERED: DOXYCYCLINE MO100 MG ORAL (22:48)
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
[2018-12-30 22:58] VITALS: BP 128/88
--- NOTE | 2018-12-30 22:59 | NUR ---
ED Nurse Note: Pt claered DC by TONNY. Pt is AO x 4times, VSS, on room air no distress. ID bend removed. Belongings given back to Pt. DC and Meds instructions given to Pt, Pt understood well. Pt walked out unit with steady gait.
== END 2018-12-30 23:07 | disposition home or self-care (01) ==
LOC: EMR 22:47
DX: L03.221 Cellulitis of neck (principal); J45.909 Unspecified asthma, uncomplicated; Z91.010 Allergy to peanuts; Z91.012 Allergy to eggs; Z91.018 Allergy to other foods
CPT/HCPCS: 99283

== ENCOUNTER 2018-12-31 08:39 | Inpatient (IN) | payer OTHER ==
[2018-12-31] VITALS (10 sets, daily range): BP systolic 115–145; BP diastolic 61–86
[~2018-12-31] VITALS: Ht 175.3 cm; Wt 113.4 kg
[~2018-12-31 08:39] MED LIST changes: +DOXYCYCLINE MO100 MG ORAL; +MUPIROCIN22 GM TOPIC
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
[2018-12-31] MEDS: Ipratropium 0.02% Inh Soln 2.5ml UD HHN SCH ×3 (09:14→09:48)
[2018-12-31] MEDS: Albuterol ud Inhalation HHN SCH ×3 (09:15→09:48)
[2018-12-31 09:27] LABS: BASOPHILS % (AUTO) 7.6 % (0.0-2.0); EOSINOPHILS % (AUTO) 3.5 % (0.0-3.0); HEMATOCRIT 52.6 % (42.0-52.0); HEMOGLOBIN 17.9 G/DL (14.2-18.0); LYMPHOCYTES % (AUTO) 16.2 % (20.0-45.0); MEAN CORPUSCULAR VOLUME 86 FL (80-99); NEUTROPHILS % (AUTO) 53.8 % (45.0-75.0); PLATELET COUNT 193 K/UL (150-450); RED BLOOD COUNT 6.15 M/UL (4.70-6.10); WHITE BLOOD COUNT 10.1 K/UL (4.8-10.8)
[2018-12-31 10:34] LABS: ANION GAP 14 mmol/L (5-15); BLOOD UREA NITROGEN 16 mg/dL (7-18); CALCIUM 10.2 MG/DL (8.5-10.1); CARBON DIOXIDE 24 MMOL/L (21-32); CHLORIDE 101 MMOL/L (98-107); CREATININE 1.2 MG/DL (0.55-1.30); SODIUM 139 MMOL/L (136-145)
[2018-12-31] MEDS ORDERED: Albuterol ud Inhalation HHN ONE (11:00)
[2018-12-31 11:05] LABS: ALANINE AMINOTRANSFERASE 47 U/L (12-78); ALBUMIN 3.8 G/DL (3.4-5.0); ALBUMIN/GLOBULIN RATIO 0.8 (1.0-2.7); ALKALINE PHOSPHATASE 86 U/L (46-116); ASPARTATE AMINO TRANSFERASE 81 U/L (15-37); BILIRUBIN,TOTAL 0.8 MG/DL (0.2-1.0); CKMB 74.4 NG/ML (0.0-3.6); CREATINE KINASE 894 U/L (26-308)
[2018-12-31] MEDS ORDERED: Ketorolac 30mg Inj IV ONE (11:15)
--- NOTE | 2018-12-31 11:17 | Diagnostic Imaging Report ---
Indication: Dyspnea Comparison: 03/13/2017 A single view chest radiograph was obtained. Findings: Cardiomediastinal appearance is within normal limits for age. The lungs are clear. Pulmonary vascularity is appropriate. The diaphragmatic contour is smooth and costophrenic angles are sharp. No pleural effusions are identified. The bones are unremarkable. Impression: No acute findings
--- NOTE | 2018-12-31 13:57 | Consultation ---
History of Present Illness General Date patient seen: Dec 31, 2018 Time patient seen: 13:48 Chief Complaint: Chest Pain Reason for Consultation: Chest pain and shortness of breath Present Illness HPI 23 y/o male w/ hx childhood asthma, daily marijuana use with development of substernal chest pain this morning, worse with walking and associated dyspnea. Possibly felt like similar asthma exacerbations years ago. Was seen in ED and felt better after neb treatments. ECG w/ nonspecific twave abnormalities but no evidence of STEMI. Trop noted to be almost 20. No chest pain now. Having TTE in ED and EF in 60s. Notes he developed a rash on his neck of unclear etiology. No fever or chills. Was felt to be eczema. Allergies: Coded Allergies: EGG (Verified Allergy, Intermediate, 09/09/12) PINEAPPLE (Verified Allergy, Intermediate, 09/09/12) Wheat (Verified Allergy, Intermediate, 09/09/12) LACTULOSE (Verified Allergy, Mild, 09/09/12) STRAWBERRY (Verified Allergy, Mild, 09/09/12) FISH CONTAINING PRODUCTS (Verified Allergy, Unknown, 11/06/15) Uncoded Allergies: PEANUTS (Allergy, Intermediate, 01/21/18) Medication History Scheduled Doxycycline Monohydrate* (Doxycycline Monohydrate*), 100 MG ORAL Q12H Mupirocin* (Mupirocin*), 1 APPLIC TOPIC THREE TIMES A DAY Discontinued Medications Acetaminophen 160MG/5ML* (Acetaminophen*), 20.3 ML GT Q4HR PRN for Fever/ Headache/Mild Pain, (Reported) Discontinued Reason: Therapy completed Albuterol Sulfate (Ventolin Hfa), 1 PUFF INH EVERY 6 HOURS Discontinued Reason: Therapy completed Albuterol Sulfate* (Albuterol Sulfate Mdi*), 2 PUFF INH Q4H, (Reported) Discontinued Reason: Therapy completed Amoxicillin/Potassium Clav 875-125* (Augmentin 875-125 Tablet*), 1 TAB ORAL TWICE A DAY Discontinued Reason: Therapy completed Bacitracin/Polymyxin B Sulfate (Bacitracin-Polymyxin Ointment), 1 APPLIC TP BID Discontinued Reason: Therapy completed Baclofen* (Baclofen*), 10 MG GT THREE TIMES A DAY, (Reported) Discontinued Reason: Therapy completed Bisacodyl* (Dulcolax*), 10 MG RECTAL DAILY, (Reported) Discontinued Reason: Therapy completed Calcium Carbonate (Calcium Carbonate), 1,000 MG GT BID, (Reported) Discontinued Reason: Therapy completed Cholecalciferol (Vitamin D3)* (Vitamin D*), 50,000 UNIT GT ONCE A WEEK, ( Reported) Discontinued Reason: Therapy completed Clonidine Hcl* (Catapres*), 0.1 MG GT EVERY 6 HOURS, (Reported) Discontinued Reason: Therapy completed Cranberry Extract (Cranberry), 200 MG PO, (Reported) Discontinued Reason: Therapy completed Dextran 70/Hypromellose (Artificial Tears), 1 EACH OP Q4HR, (Reported) Discontinued Reason: Therapy completed Diphenhydramine Hcl* (Diphenhydramine Hcl*), 50 MG ORAL Q6H PRN for Itching Discontinued Reason: Therapy completed Docusate Sodium* (Docusate Sodium*), 100 MG GT BID, (Reported) Discontinued Reason: Therapy completed Fluticasone Propionate (Flonase Allergy Relief), 9.9 ML NS BID Discontinued Reason: Therapy completed Hydroxyzine HCl (Hydroxyzine HCl), 25 MG ORAL FOUR TIMES A DAY Discontinued Reason: Therapy completed Ibuprofen* (Motrin*), 600 MG ORAL Q8H PRN for For Pain Discontinued Reason: Therapy completed Ipratropium/Albuterol Sulfate (DuoNeb 0.5-3(2.5)mg/3ml), 3 ML HHN, (Reported) Discontinued Reason: Therapy completed No Known Medications* (NKM - No Known Medications*), 0 ., (Reported) Discontinued Reason: Therapy completed Prednisone* (Prednisone*), 60 MG ORAL DAILY Discontinued Reason: Therapy completed Prednisone* (Prednisone*), 40 MG ORAL DAILY Discontinued Reason: Therapy completed Prednisone* (Prednisone*), 40 MG ORAL DAILY Discontinued Reason: Therapy completed Prednisone* (Prednisone*), 20 MG ORAL BID Discontinued Reason: Therapy completed Spironolactone* (Aldactone*), 25 MG ORAL DAILY, (Reported) Discontinued Reason: Therapy completed Spironolactone* (Aldactone*), 25 MG GT DAILY, (Reported) Discontinued Reason: Therapy completed Triamcinolone Acet (Triamcinolone Acetonide), 60 ML TOPIC TID Discontinued Reason: Therapy completed Triamcinolone Acet (Triamcinolone Acetonide), 1 APPLIC APPLIC BID Discontinued Reason: Therapy completed Patient History History Provided By: Patient Healthcare decision maker Resuscitation status Advanced Directive on File Past Medical/Surgical History Past Medical/Surgical History: (1) allergic reaction (2) atopic dermatitis Review of Systems Constitutional: Reports: no symptoms Eye: Reports: no symptoms ENT: Reports: no symptoms Respiratory: Reports: shortness of breath Cardiovascular: Reports: chest pain Gastrointestinal: Reports: no symptoms Genitourinary: Reports: no symptoms Musculoskeletal: Reports: no symptoms Skin: Reports: rash Psychiatric: Reports: no symptoms Neurological: Reports: no symptoms Endocrine: Reports: no symptoms Hematologic/Lymphatic: Reports: no symptoms Physical Exam General Appearance: WD/WN, no apparent distress, alert HEENT: normocephalic, atraumatic, anicteric, mucous membranes moist, PERRL Neck: other - nodular rash on neck, somewhat fluid-filled Respiratory/Chest: chest wall non-tender, lungs clear, normal breath sounds, no respiratory distress, no accessory muscle use Breasts: other - gynecomastia Cardiovascular/Chest: normal rate, regular rhythm Abdomen: normal bowel sounds, non tender, soft Neurologic: hydraulic press tender II-XII grossly normal, alert, oriented x 3 Last 24 Hour Vital Signs Date Time Temp Pulse Resp B/P (MAP) Pulse Ox O2 Delivery O2 Flow Rate FiO2 12/31/18 12:39 85 24 Room Air 12/31/18 12:39 85 24 145/85 100 12/31/18 11:14 78 15 99 Room Air 21 12/31/18 10:58 67 18 98 Room Air 21 12/31/18 10:06 82 22 Room Air 100 12/31/18 10:06 76 16 99 Room Air 21 12/31/18 10:06 98.0 82 22 100 Room Air 12/31/18 09:48 71 16 99 Room Air 21 12/31/18 09:47 71 16 99 Room Air 21 12/31/18 09:30 66 22 99 Room Air 21 12/31/18 09:29 66 24 99 Room Air 21 12/31/18 09:14 52 24 99 Room Air 21 12/31/18 08:42 98.4 72 18 149/87 100 12/31/18 07:12 52 24 Room Air Laboratory Tests Test 12/31/18 09:05 12/31/18 09:55 12/31/18 12:30 White Blood Count 10.1 K/UL (4.8-10.8) Red Blood Count 6.15 M/UL (4.70-6.10) H Hemoglobin 17.9 G/DL (14.2-18.0) Hematocrit 52.6 % (42.0-52.0) H Mean Corpuscular Volume 86 FL (80-99) Mean Corpuscular Hemoglobin 29.1 PG (27.0-31.0) Mean Corpuscular Hemoglobin Concent 34.0 G/DL (32.0-36.0) Red Cell Distribution Width 12.0 % (11.6-14.8) Platelet Count 193 K/UL (150-450) Mean Platelet Volume 8.3 FL (6.5-10.1) Neutrophils (%) (Auto) 53.8 % (45.0-75.0) Lymphocytes (%) (Auto) 16.2 % (20.0-45.0) L Monocytes (%) (Auto) 19.0 % (1.0-10.0) H Eosinophils (%) (Auto) 3.5 % (0.0-3.0) H Basophils (%) (Auto) 7.6 % (0.0-2.0) H Sodium Level 139 MMOL/L (136-145) Potassium Level 4.0 MMOL/L (3.5-5.1) Chloride Level 101 MMOL/L (98-107) Carbon Dioxide Level 24 MMOL/L (21-32) Anion Gap 14 mmol/L (5-15) Blood Urea Nitrogen 16 mg/dL (7-18) Creatinine 1.2 MG/DL (0.55-1.30) Estimat Glomerular Filtration Rate > 60 mL/min (>60) Glucose Level 108 MG/DL (74-106) H Calcium Level 10.2 MG/DL (8.5-10.1) H Total Bilirubin 0.8 MG/DL (0.2-1.0) Aspartate Amino Transf (AST/SGOT) 81 U/L (15-37) H Alanine Aminotransferase (ALT/SGPT) 47 U/L (12-78) Alkaline Phosphatase 86 U/L (46-116) Total Creatine Kinase 894 U/L (26-308) H Creatine Kinase MB 74.4 NG/ML (0.0-3.6) H Creatine Kinase MB Relative Index 8.3 Troponin I 19.701 ng/mL (0.000-0.056) Total Protein 8.8 G/DL (6.4-8.2) H Albumin 3.8 G/DL (3.4-5.0) Globulin 5.0 g/dL Albumin/Globulin Ratio 0.8 (1.0-2.7) L Urine Opiates Screen Negative (NEGATIVE) Urine Barbiturates Screen Negative (NEGATIVE) Phencyclidine (PCP) Screen Negative (NEGATIVE) Urine Amphetamines Screen Negative (NEGATIVE) Urine Benzodiazepines Screen Negative (NEGATIVE) Urine Cocaine Screen Negative (NEGATIVE) Urine Marijuana (THC) Screen Positive (NEGATIVE) H Height (Feet): 5 Height (Inches): 9.00 Weight (Pounds): 250 Assessment/Plan Assessment/Plan Problem List: 1. Acute chest pain with shortness of breath 2. Troponin elevation 3. Possible myocarditis 4. Nonspecific ECG changes 5. Neck rash - ?allergic vs viral 6. Childhood asthma w/o clear exacerbation 7. Daily marijuana use Plan: -repeat troponin -cardiac monitoring -f/u TTE -check ddimer, ESR, CRP -cardiology to evaluate -daily ECG Discussed with ER Time: 65 min Josh Rizzo MD Dec 31, 2018 13:57
--- NOTE | 2018-12-31 14:10 | History and Physical ---
History of Present Illness General Date patient seen: Dec 31, 2018 Time patient seen: 14:00 Reason for Hospitalization: Chest Pain Present Illness HPI 23 y/o male with history of eczema, childhood asthma, daily marijuana use who presented development of substernal chest pain starting this morning, worse with walking and associated dyspnea. Similar symptoms to asthma exacerbation. Was seen in ED and felt better after neb treatments. ECG w/ nonspecific twave abnormalities but no evidence of STEMI. Trop noted to be almost 20. Patient referred for admission to the ICU, evaluated by footwear stitcher. Cardiology consulted in ED PMHx:Asthma and eczema SH: Marijuana use Family History: No cardiac disease reported Allergies: Coded Allergies: EGG (Verified Allergy, Intermediate, 09/09/12) PINEAPPLE (Verified Allergy, Intermediate, 09/09/12) Wheat (Verified Allergy, Intermediate, 09/09/12) LACTULOSE (Verified Allergy, Mild, 09/09/12) STRAWBERRY (Verified Allergy, Mild, 09/09/12) FISH CONTAINING PRODUCTS (Verified Allergy, Unknown, 11/06/15) Uncoded Allergies: PEANUTS (Allergy, Intermediate, 01/21/18) Medication History Scheduled Doxycycline Monohydrate* (Doxycycline Monohydrate*), 100 MG ORAL Q12H Mupirocin* (Mupirocin*), 1 APPLIC TOPIC THREE TIMES A DAY Discontinued Medications Acetaminophen 160MG/5ML* (Acetaminophen*), 20.3 ML GT Q4HR PRN for Fever/ Headache/Mild Pain, (Reported) Discontinued Reason: Therapy completed Albuterol Sulfate (Ventolin Hfa), 1 PUFF INH EVERY 6 HOURS Discontinued Reason: Therapy completed Albuterol Sulfate* (Albuterol Sulfate Mdi*), 2 PUFF INH Q4H, (Reported) Discontinued Reason: Therapy completed Amoxicillin/Potassium Clav 875-125* (Augmentin 875-125 Tablet*), 1 TAB ORAL TWICE A DAY Discontinued Reason: Therapy completed Bacitracin/Polymyxin B Sulfate (Bacitracin-Polymyxin Ointment), 1 APPLIC TP BID Discontinued Reason: Therapy completed Baclofen* (Baclofen*), 10 MG GT THREE TIMES A DAY, (Reported) Discontinued Reason: Therapy completed Bisacodyl* (Dulcolax*), 10 MG RECTAL DAILY, (Reported) Discontinued Reason: Therapy completed Calcium Carbonate (Calcium Carbonate), 1,000 MG GT BID, (Reported) Discontinued Reason: Therapy completed Cholecalciferol (Vitamin D3)* (Vitamin D*), 50,000 UNIT GT ONCE A WEEK, ( Reported) Discontinued Reason: Therapy completed Clonidine Hcl* (Catapres*), 0.1 MG GT EVERY 6 HOURS, (Reported) Discontinued Reason: Therapy completed Cranberry Extract (Cranberry), 200 MG PO, (Reported) Discontinued Reason: Therapy completed Dextran 70/Hypromellose (Artificial Tears), 1 EACH OP Q4HR, (Reported) Discontinued Reason: Therapy completed Diphenhydramine Hcl* (Diphenhydramine Hcl*), 50 MG ORAL Q6H PRN for Itching Discontinued Reason: Therapy completed Docusate Sodium* (Docusate Sodium*), 100 MG GT BID, (Reported) Discontinued Reason: Therapy completed Fluticasone Propionate (Flonase Allergy Relief), 9.9 ML NS BID Discontinued Reason: Therapy completed Hydroxyzine HCl (Hydroxyzine HCl), 25 MG ORAL FOUR TIMES A DAY Discontinued Reason: Therapy completed Ibuprofen* (Motrin*), 600 MG ORAL Q8H PRN for For Pain Discontinued Reason: Therapy completed Ipratropium/Albuterol Sulfate (DuoNeb 0.5-3(2.5)mg/3ml), 3 ML HHN, (Reported) Discontinued Reason: Therapy completed No Known Medications* (NKM - No Known Medications*), 0 ., (Reported) Discontinued Reason: Therapy completed Prednisone* (Prednisone*), 60 MG ORAL DAILY Discontinued Reason: Therapy completed Prednisone* (Prednisone*), 40 MG ORAL DAILY Discontinued Reason: Therapy completed Prednisone* (Prednisone*), 40 MG ORAL DAILY Discontinued Reason: Therapy completed Prednisone* (Prednisone*), 20 MG ORAL BID Discontinued Reason: Therapy completed Spironolactone* (Aldactone*), 25 MG ORAL DAILY, (Reported) Discontinued Reason: Therapy completed Spironolactone* (Aldactone*), 25 MG GT DAILY, (Reported) Discontinued Reason: Therapy completed Triamcinolone Acet (Triamcinolone Acetonide), 60 ML TOPIC TID Discontinued Reason: Therapy completed Triamcinolone Acet (Triamcinolone Acetonide), 1 APPLIC APPLIC BID Discontinued Reason: Therapy completed Patient History Healthcare decision maker Resuscitation status Advanced Directive on File Review of Systems Constitutional: Denies: fever Eye: Denies: eye pain, blurred vision ENT: Denies: ear pain, ear discharge Respiratory: Reports: cough, shortness of breath; Denies: orthopnea Cardiovascular: Reports: chest pain; Denies: edema, palpitations Gastrointestinal: Denies: abdominal pain Genitourinary: Denies: discharge, dysuria Musculoskeletal: Denies: back pain, gout Skin: Denies: rash, change in color Neurological: Denies: headache, numbness Endocrine: Denies: excessive sweating Physical Exam General Appearance: alert HEENT: normocephalic, atraumatic Neck: normal alignment, supple, normal inspection Respiratory/Chest: chest wall non-tender, lungs clear, normal breath sounds Cardiovascular/Chest: normal peripheral pulses, normal rate, regular rhythm Abdomen: normal bowel sounds, non tender, soft Extremities: normal range of motion, non-tender Neurologic: metal buffer II-XII grossly normal, no motor/sensory deficits Last 24 Hour Vital Signs Date Time Temp Pulse Resp B/P (MAP) Pulse Ox O2 Delivery O2 Flow Rate FiO2 12/31/18 12:39 85 24 Room Air 12/31/18 12:39 85 24 145/85 100 12/31/18 11:14 78 15 99 Room Air 21 12/31/18 10:58 67 18 98 Room Air 21 12/31/18 10:06 82 22 Room Air 100 12/31/18 10:06 76 16 99 Room Air 21 12/31/18 10:06 98.0 82 22 100 Room Air 12/31/18 09:48 71 16 99 Room Air 21 12/31/18 09:47 71 16 99 Room Air 21 12/31/18 09:30 66 22 99 Room Air 21 12/31/18 09:29 66 24 99 Room Air 21 12/31/18 09:14 52 24 99 Room Air 21 12/31/18 08:42 98.4 72 18 149/87 100 12/31/18 07:12 52 24 Room Air Laboratory Tests Test 12/31/18 09:05 12/31/18 09:55 12/31/18 12:30 White Blood Count 10.1 K/UL (4.8-10.8) Red Blood Count 6.15 M/UL (4.70-6.10) H Hemoglobin 17.9 G/DL (14.2-18.0) Hematocrit 52.6 % (42.0-52.0) H Mean Corpuscular Volume 86 FL (80-99) Mean Corpuscular Hemoglobin 29.1 PG (27.0-31.0) Mean Corpuscular Hemoglobin Concent 34.0 G/DL (32.0-36.0) Red Cell Distribution Width 12.0 % (11.6-14.8) Platelet Count 193 K/UL (150-450) Mean Platelet Volume 8.3 FL (6.5-10.1) Neutrophils (%) (Auto) 53.8 % (45.0-75.0) Lymphocytes (%) (Auto) 16.2 % (20.0-45.0) L Monocytes (%) (Auto) 19.0 % (1.0-10.0) H Eosinophils (%) (Auto) 3.5 % (0.0-3.0) H Basophils (%) (Auto) 7.6 % (0.0-2.0) H Sodium Level 139 MMOL/L (136-145) Potassium Level 4.0 MMOL/L (3.5-5.1) Chloride Level 101 MMOL/L (98-107) Carbon Dioxide Level 24 MMOL/L (21-32) Anion Gap 14 mmol/L (5-15) Blood Urea Nitrogen 16 mg/dL (7-18) Creatinine 1.2 MG/DL (0.55-1.30) Estimat Glomerular Filtration Rate > 60 mL/min (>60) Glucose Level 108 MG/DL (74-106) H Calcium Level 10.2 MG/DL (8.5-10.1) H Total Bilirubin 0.8 MG/DL (0.2-1.0) Aspartate Amino Transf (AST/SGOT) 81 U/L (15-37) H Alanine Aminotransferase (ALT/SGPT) 47 U/L (12-78) Alkaline Phosphatase 86 U/L (46-116) Total Creatine Kinase 894 U/L (26-308) H Creatine Kinase MB 74.4 NG/ML (0.0-3.6) H Creatine Kinase MB Relative Index 8.3 Troponin I 19.701 ng/mL (0.000-0.056) Total Protein 8.8 G/DL (6.4-8.2) H Albumin 3.8 G/DL (3.4-5.0) Globulin 5.0 g/dL Albumin/Globulin Ratio 0.8 (1.0-2.7) L Urine Opiates Screen Negative (NEGATIVE) Urine Barbiturates Screen Negative (NEGATIVE) Phencyclidine (PCP) Screen Negative (NEGATIVE) Urine Amphetamines Screen Negative (NEGATIVE) Urine Benzodiazepines Screen Negative (NEGATIVE) Urine Cocaine Screen Negative (NEGATIVE) Urine Marijuana (THC) Screen Positive (NEGATIVE) H Height (Feet): 5 Height (Inches): 9.00 Weight (Pounds): 250 Assessment/Plan Status Narrative #Chest pain #history of asthma #possible recent URI #Troponinemia #Suspected viral myocarditis -admit to ICU -continuous cardiac monitoring -inhaled bronchodilators prn -follow up TTE results -check serial trops -Cardiology eval -footwear stitcher eval -smoking cessation advised Umer Eckert MD Dec 31, 2018 14:09
[2018-12-31] MEDS ORDERED: Albuterol ud Inhalation HHN PRN (14:15)
--- NOTE | 2018-12-31 17:21 | Cardiology Report ---
APPROVED REPORT EXAM: Two-dimensional and M-mode echocardiogram with Doppler and color Doppler. INDICATION [facility] M-Mode DIMENSIONS IVSd1.1 (0.7-1.1cm)Left Atrium (MM)3.5 (1.6-4.0cm) LVDd5.0 (3.5-5.6cm)Aortic Root3.5 (2.0-3.7cm) PWd1.3 (0.7-1.1cm)Aortic Cusp Exc.1.9 (1.5-2.0cm) LVDs2.9 (2.5-4.0cm) PWs2.1 cm Normal left ventricular chamber size, systolic function and wall motion. Left ventricular ejection fraction estimated to be 55- 60 %. No evidence of left ventricular hypertrophy. No evidence of pericardial effusion. Mild bi-atrial enlargement. Right ventricular chamber size is within normal limits. Mild focal aortic valve sclerosis with adequate cusp excursion. Mildly thickened mitral valve leaflets with normal excursion. Mild mitral annulus and aortic root calcification. Normal pulmonic valve structure. Normal tricuspid valve structure. IVC at normal size with physiologic collapse. A color flow and spectral Doppler study was performed and revealed: Trace mitral regurgitation. Mitral inflow indicates normal left ventricular diastolic function. Trace tricuspid regurgitation. Tricuspid systolic velocities suggests peak right ventricular systolic pressure of 14 mmHg.
--- NOTE | 2018-12-31 19:37 | Cardiology Progress Note ---
Assessment/Plan Assessment/Plan suspected myopericarditis acute rash aroudn ed neck only recent use of new tobacco product inconjuction with marijuana purchased locally nite sweats / recent diarrhea etiology of ed myocarditis not apparent but may have a common cause with tehr rash on his neck which is very peculiar he does not think ed ne tobacco product he used was mixed with any otehr chemical hi trop have been steady climbing his initial alex noted with some st chagned may be early repol but pericarditics not excluded but would make sense inthis scenari will ahve cbc carlie need manual diff hiv hep consider derm eval myocarditis michel includes need for cardiac mri adn ctca / cath non ow which are available her at this hospital i will call [facility] transfer center agin myself now to see if able to transfer er dr cain failed at [facility] and [facility] earlier today full note dictated Objective Last 24 Hour Vital Signs Date Time Temp Pulse Resp B/P (MAP) Pulse Ox O2 Delivery O2 Flow Rate FiO2 12/31/18 18:00 75 15 120/66 (84) 98 12/31/18 17:00 Room Air 12/31/18 17:00 98.8 78 15 115/64 (81) 100 12/31/18 16:20 93 16 122/68 98 Room Air 12/31/18 16:00 93 20 122/68 99 Room Air 12/31/18 15:13 91 22 120/68 99 Room Air 12/31/18 12:39 85 24 Room Air 12/31/18 12:39 85 24 145/85 100 12/31/18 11:14 78 15 99 Room Air 21 12/31/18 10:58 67 18 98 Room Air 21 12/31/18 10:06 82 22 Room Air 100 12/31/18 10:06 76 16 99 Room Air 21 12/31/18 10:06 98.0 82 22 100 Room Air 12/31/18 09:48 71 16 99 Room Air 21 12/31/18 09:47 71 16 99 Room Air 21 12/31/18 09:30 66 22 99 Room Air 21 12/31/18 09:29 66 24 99 Room Air 21 12/31/18 09:14 52 24 99 Room Air 21 12/31/18 08:42 98.4 72 18 149/87 100 12/31/18 07:12 52 24 Room Air Laboratory Tests Test 12/31/18 09:05 12/31/18 09:55 12/31/18 12:30 12/31/18 13:55 White Blood Count 10.1 K/UL (4.8-10.8) Red Blood Count 6.15 M/UL (4.70-6.10) H Hemoglobin 17.9 G/DL (14.2-18.0) Hematocrit 52.6 % (42.0-52.0) H Mean Corpuscular Volume 86 FL (80-99) Mean Corpuscular Hemoglobin 29.1 PG (27.0-31.0) Mean Corpuscular Hemoglobin Concent 34.0 G/DL (32.0-36.0) Red Cell Distribution Width 12.0 % (11.6-14.8) Platelet Count 193 K/UL (150-450) Mean Platelet Volume 8.3 FL (6.5-10.1) Neutrophils (%) (Auto) 53.8 % (45.0-75.0) Lymphocytes (%) (Auto) 16.2 % (20.0-45.0) L Monocytes (%) (Auto) 19.0 % (1.0-10.0) H Eosinophils (%) (Auto) 3.5 % (0.0-3.0) H Basophils (%) (Auto) 7.6 % (0.0-2.0) H Sodium Level 139 MMOL/L (136-145) Potassium Level 4.0 MMOL/L (3.5-5.1) Chloride Level 101 MMOL/L (98-107) Carbon Dioxide Level 24 MMOL/L (21-32) Anion Gap 14 mmol/L (5-15) Blood Urea Nitrogen 16 mg/dL (7-18) Creatinine 1.2 MG/DL (0.55-1.30) Estimat Glomerular Filtration Rate > 60 mL/min (>60) Glucose Level 108 MG/DL (74-106) H Calcium Level 10.2 MG/DL (8.5-10.1) H Total Bilirubin 0.8 MG/DL (0.2-1.0) Aspartate Amino Transf (AST/SGOT) 81 U/L (15-37) H Alanine Aminotransferase (ALT/SGPT) 47 U/L (12-78) Alkaline Phosphatase 86 U/L (46-116) Total Creatine Kinase 894 U/L (26-308) H Creatine Kinase MB 74.4 NG/ML (0.0-3.6) H Creatine Kinase MB Relative Index 8.3 Troponin I 19.701 ng/mL (0.000-0.056) 34.547 ng/mL (0.000-0.056) Total Protein 8.8 G/DL (6.4-8.2) H Albumin 3.8 G/DL (3.4-5.0) Globulin 5.0 g/dL Albumin/Globulin Ratio 0.8 (1.0-2.7) L Urine Opiates Screen Negative (NEGATIVE) Urine Barbiturates Screen Negative (NEGATIVE) Phencyclidine (PCP) Screen Negative (NEGATIVE) Urine Amphetamines Screen Negative (NEGATIVE) Urine Benzodiazepines Screen Negative (NEGATIVE) Urine Cocaine Screen Negative (NEGATIVE) Urine Marijuana (THC) Screen Positive (NEGATIVE) H Erythrocyte Sedimentation Rate 11 MM/HR (0-15) D-Dimer 0.65 mg/L FEU (0.00-0.49) H C-Reactive Protein, Quantitative 18.3 mg/dL (0.00-0.90) H Vipul Renee MD Dec 31, 2018 19:37
[2019-01-01] VITALS (19 sets, daily range): BP systolic 93–168; BP diastolic 48–125
[2019-01-01] MEDS ORDERED: Morphine Sulfate 4mg/ml Inj (IV/IM USE ONLY) IVP ONE (00:45)
[2019-01-01] MEDS: Indomethacin 25mg cap ORAL SCH ×3 (00:52→17:34)
[2019-01-01] MEDS ORDERED: Morphine Sulfate 2mg/ml Inj IVP ONE ×2 (01:30)
[2019-01-01] MEDS ORDERED: Morphine Sulfate 4mg/ml Inj (IV/IM USE ONLY) IVP PRN (01:30)
--- NOTE | 2019-01-01 01:30 | Consultation ---
DATE OF CONSULTATION: 12/31/2018 CARDIOLOGY CONSULTATION CONSULTING PHYSICIAN: Vipul Renee M.D. REASON FOR ADMISSION: Abnormal cardiac enzymes. HISTORY OF PRESENT ILLNESS: This is a 23-year-old gentleman who initially presented to the emergency room last night because of rash around his neck. He apparently told the emergency room physician that he was sleeping on the floor in his friend's house on a carpet. He woke up the next day. There was rash on his neck. It was that he was seen in the emergency room here and was administered some doxycycline and mupirocin by the emergency room physician and he had tried putting a lot of different materials on the rash to see if it would go away. Anyway, he was discharged home. He went home. In the middle of the night, apparently he had night sweats, which he usually does not. He really does not have any fevers or chills and this morning went to the to get some coffee. During that time that he was standing in the line, he developed abnormal sensation in his chest and sort of gurgling sensation, and was very tired and he presented to the emergency room. He had some workup done. Initially, his cardiac enzyme was abnormal, which was 19. He received some breathing treatments and some steroids apparently in the emergency room. After that, he has no longer had any more discomfort. He is actually feeling fine and back to his baseline state. He has had no fevers or chills. No exertional shortness of breath. There is no PND. No orthopnea. No palpitations. No exertional chest pain. No lightheadedness on standing. He is feeling completely fine right now. He does not have any of that material recently. Last night, the patient does admit to using a new tobacco product that he started using last night as well as some marijuana that he received from a store and he rolled it up in a cigar and smoked that last night, that is the only thing that he has used is this new tobacco product that he was using. Nevertheless, the symptoms that he just had that started this morning. PAST MEDICAL HISTORY: Positive for history of asthma. No history of any other medical problems. No diabetes or high blood pressure. No heart attack, cancer, stroke, hepatitis, or tuberculosis. No ulcers. No kidney problems, liver problems, thyroid problems, anemia, arthritis, HIV, AIDS, or any other medical problems. ALLERGIES: He is not allergic to any medications. SOCIAL HISTORY: He does not smoke cigarettes. He does not drink alcoholic beverages. The only drug that he admits to using was the tobacco product as mentioned above as well as marijuana. He denies any cocaine or other drug use and he does not think any other materials that he used was laced with any other drugs. REVIEW OF SYSTEMS: GASTROINTESTINAL: He has had history of diarrhea approximately 2 days ago and he may have had some black stools. GENITOURINARY: Negative. No burning or blood in urine. PULMONARY: No coughing or wheezing. He did have the tightness as mentioned. He has had history of asthma, but he has not had an exacerbation since age 8. CONSTITUTIONAL: No fevers or chills. He did have some night sweats last night. NEUROLOGIC: Negative. PHYSICAL EXAMINATION: GENERAL: Shows to be young gentleman, in no respiratory distress. NECK: Supple. There is a peculiar rash throughout both sides of his neck, just only on the neck area. There is no jugular venous distention. LUNGS: Appear to be clear to auscultation and percussion. CARDIAC: S1 is normal. S2 is normal. Regular rate and rhythm. No heaves or thrills noted. ABDOMEN: Soft. Positive bowel sounds. Nontender. EXTREMITIES: There is no edema. LABORATORY AND DIAGNOSTIC DATA: White count of 10.6 with hemoglobin of 17.9 and platelet count of 193,000. Sedimentation rate was only 11. His sodium is 139, potassium 4, chloride 101, bicarbonate 24, BUN of 16, creatinine 1.2, glucose of 108, calcium is 10.2, direct bilirubin 0.8, AST of 81, ALT of 47, alkaline phosphatase 86. CK of 894 with a troponin of 19.7. Subsequently, troponin at 2 o'clock in the afternoon was 35. His C-reactive protein is 18, total protein is 8.8, albumin is 3.8, and globulin is 5. His coags, D-dimer of 0.65. Tox-screen positive for marijuana. Urine was negative. He had imaging performed in the emergency room today, interpreted as cardiomediastinal silhouette to be normal, but the lungs were clear to auscultation, pulmonary vasculature is normal, diaphragmatic contour is smooth, costophrenic angles are sharp. No pleural effusions were noted. An echocardiogram has been performed and interpreted by manager equipment, Dr. Armijo; normal left ventricular systolic function and wall motion, ejection fraction is 55% to 60%, no pericardial effusion, mild biatrial enlargement, no valvular abnormalities, trace mitral regurgitation, mitral inflow was normal, trace tricuspid regurgitation, pulmonary artery systolic pressure is estimated at 14. His EKG is basically sinus rhythm. There are some ST-segment changes diffusely in lead I, II, aVL, V4, V5, and maybe some in V6 that persisted on detailed evaluation. There may be some MI segment depression in lead II, and it is otherwise sinus rhythm. The telemetry is reading sinus. ASSESSMENT AND PLAN: 1. Abnormal cardiac enzyme, most consistent with myocarditis, possibly perimyocarditis. 2. Skin rash around the neck, relatively acute. 3. Recent bout of diarrhea. 4. Recent use of a new tobacco product as well as marijuana. This patient was seen in cardiac consultation. The patient is absolutely asymptomatic at this time with no signs or symptoms of chest pain or shortness of breath. No signs or symptoms of congestive heart failure and apparently his rhythm appears normal. His echocardiogram shows normal wall motion, however, the concerning etiology of the elevated troponin and increase in elevation exists. This patient has been recommended to be transferred to [facility]. The emergency room physician tried to do exactly that, but apparently, the patient was not accepted in any other hospitals because they felt he did not have an acute myocardial infarction based on lack of symptoms. In either case, the patient is entirely asymptomatic and the scenario is more consistent with perimyocarditis, although I do not hear any pericardial friction rub on examination, but he does have some ST-segment changes that may be suggestive of that. He has had a recent rash on the neck. He has had recent diarrhea. He has had some night sweats, which I suspect may all be involved in whatever is ongoing as a cause of his perimyocarditis. Repeat cardiac enzymes will be performed. His echocardiogram may need to be repeated over the next day or two. He probably should have a cardiac MR, which is not available in this hospital and maybe better off with a CT coronary angiography as well, although at 23, I doubt coronary artery as a cause of his pain, but nevertheless, in the terms of workup, it is the etiology of myocarditis. I think those are important things to do that is not available here. I will place a call to see if the patient is possible to be transferred to [facility] myself for the required workup and we will follow up. In the meantime, I wonder if Infectious Disease doctor may be able to help or a Dermatology evaluation of rash that he has specifically on his neck that may help in identifying causative agents of that and putting all of this together. I suspect there may be some kind of viral infection. His sedimentation rate is not significantly elevated, but his CRP is elevated. cell count with differential will be ordered. HIV and hepatitis viruses will be ordered as the patient's liver functions are minimally abnormal, although that particular one may be related to elevated CK, which may be playing a role in this. Vipul Renee M.D. DR: John JOB#: [id number] CC:
[2019-01-01 02:18] LABS: BASOPHILS % (AUTO) 1.4 % (0.0-2.0); HEMOGLOBIN 16.2 G/DL (14.2-18.0); MEAN CORPUSCULAR VOLUME 85 FL (80-99); MONOCYTES % (AUTO) 8.3 % (1.0-10.0); NEUTROPHILS % (AUTO) 81.3 % (45.0-75.0); PLATELET COUNT 308 K/UL (150-450); RED CELL DISTRIBUTION WIDTH 12.2 % (11.6-14.8); WHITE BLOOD COUNT 16.9 K/UL (4.8-10.8)
[2019-01-01 02:26] LABS: ANION GAP 12 mmol/L (5-15); BLOOD UREA NITROGEN 14 mg/dL (7-18); CALCIUM 9.6 MG/DL (8.5-10.1); CARBON DIOXIDE 23 MMOL/L (21-32); CHLORIDE 104 MMOL/L (98-107); CREATININE 0.9 MG/DL (0.55-1.30); POTASSIUM 4.2 MMOL/L (3.5-5.1); SODIUM 138 MMOL/L (136-145)
[2019-01-01] MEDS ORDERED: Albuterol/Ipratropium 3ml neb HHN PRN (08:00)
--- NOTE | 2019-01-01 08:12 | Pulmonolgy Critical Care Note ---
Critical Care - Asmt/Plan Problems: (1) Myocarditis (2) Chest pain (3) Asthma exacerbation (4) Rash and other nonspecific skin eruption Assessment & Plan: Problem List: 1. Acute chest pain with shortness of breath 2. Troponin elevation 3. Likely myocarditis 4. Nonspecific ECG changes 5. Neck rash - ?allergic vs viral 6. Childhood asthma w/o clear exacerbation 7. Daily marijuana use 8. Leukocytosis Plan: -ICU level care -cardiac monitoring, monitor ECG -Trend troponins -Continue Indocin -? steroids -Serologies ordered -D-dimer only minimally elevated, RV looks ok on TTE, doubt PE, will check Duplex -F/U cardiology recs -Transfer to higher level of care -PRN HHN's -Hep SQ CCT 35 Critical Care - Objective Last 24 Hour Vital Signs Date Time Temp Pulse Resp B/P (MAP) Pulse Ox O2 Delivery O2 Flow Rate FiO2 01/01/19 06:00 69 16 112/67 (82) 99 01/01/19 05:00 98.4 75 19 113/66 (82) 98 01/01/19 04:00 Room Air 01/01/19 04:00 77 18 116/77 (90) 99 01/01/19 04:00 65 01/01/19 03:00 98 23 113/64 (80) 95 01/01/19 02:00 61 20 105/53 (70) 98 01/01/19 01:45 98.8 01/01/19 01:22 98.8 01/01/19 01:00 62 17 152/99 (116) 100 01/01/19 00:00 Room Air 01/01/19 00:00 67 01/01/19 00:00 98.0 68 21 168/125 (139) 99 12/31/18 23:00 98 Nasal Cannula 28 12/31/18 23:00 69 17 129/86 (100) 98 12/31/18 22:00 84 21 Nasal Cannula 2.0 28 12/31/18 22:00 84 21 121/74 (90) 98 12/31/18 22:00 Nasal Cannula 2.0 28 12/31/18 21:00 91 22 127/72 (90) 99 12/31/18 20:00 91 20 122/61 (81) 99 12/31/18 20:00 Room Air 12/31/18 20:00 92 12/31/18 19:00 93 20 127/72 (90) 99 12/31/18 18:00 75 15 120/66 (84) 98 12/31/18 17:00 Room Air 12/31/18 17:00 98.8 78 15 115/64 (81) 100 12/31/18 16:20 93 16 122/68 98 Room Air 12/31/18 16:00 93 20 122/68 99 Room Air 12/31/18 15:13 91 22 120/68 99 Room Air 12/31/18 12:39 85 24 Room Air 12/31/18 12:39 85 24 145/85 100 12/31/18 11:14 78 15 99 Room Air 21 12/31/18 10:58 67 18 98 Room Air 21 12/31/18 10:06 82 22 Room Air 100 12/31/18 10:06 76 16 99 Room Air 21 12/31/18 10:06 98.0 82 22 100 Room Air 12/31/18 09:48 71 16 99 Room Air 21 12/31/18 09:47 71 16 99 Room Air 21 12/31/18 09:30 66 22 99 Room Air 21 12/31/18 09:29 66 24 99 Room Air 21 12/31/18 09:14 52 24 99 Room Air 21 12/31/18 08:42 98.4 72 18 149/87 100 Status: awake Condition: improving HEENT: atraumatic, normocephalic Lungs: clear Heart: HR/BP stable Abdomen: soft, non-tender, active bowel sounds Extremities: no C/C/E Critical Care - Subjective ROS Limited/Unobtainable: Yes ICU Day: 2 Interval Events: AFVSS O2 needs stable trop uptrending TTE noted WCT 17 Condition: stable IV Access: peripheral EKG Rhythm: Sinus Rhythm FI02: 28 Sputum Amount: None Fluids: SLIV I&O: Intake and Output 12/31/18 01/01/19 19:00 07:00 Intake Total 540 ml 180 ml Output Total 200 ml Balance 540 ml -20 ml Intake Oral 540 ml 180 ml Output Urine Total 200 ml # Voids 1 1 # Bowel Movements 2 Subjective: Better this am. No F/C/CP/SOB/N/V/D/C/abd pain/urinary complaints CXR: NAD Labs: Laboratory Tests Test 12/31/18 09:05 12/31/18 09:55 12/31/18 12:30 12/31/18 13:55 White Blood Count 10.1 K/UL (4.8-10.8) Red Blood Count 6.15 M/UL (4.70-6.10) H Hemoglobin 17.9 G/DL (14.2-18.0) Hematocrit 52.6 % (42.0-52.0) H Mean Corpuscular Volume 86 FL (80-99) Mean Corpuscular Hemoglobin 29.1 PG (27.0-31.0) Mean Corpuscular Hemoglobin Concent 34.0 G/DL (32.0-36.0) Red Cell Distribution Width 12.0 % (11.6-14.8) Platelet Count 193 K/UL (150-450) Mean Platelet Volume 8.3 FL (6.5-10.1) Neutrophils (%) (Auto) 53.8 % (45.0-75.0) Lymphocytes (%) (Auto) 16.2 % (20.0-45.0) L Monocytes (%) (Auto) 19.0 % (1.0-10.0) H Eosinophils (%) (Auto) 3.5 % (0.0-3.0) H Basophils (%) (Auto) 7.6 % (0.0-2.0) H Differential Total Cells Counted 100 Neutrophils % (Manual) 50 % (45-75) Lymphocytes % (Manual) 17 % (20-45) L Monocytes % (Manual) 26 % (1-10) H Eosinophils % (Manual) 4 % (0-3) H Basophils % (Manual) 2 % (0-2) Band Neutrophils 1 % (0-8) Platelet Estimate Adequate Platelet Morphology Normal Red Blood Cell Morphology Normal Sodium Level 139 MMOL/L (136-145) Potassium Level 4.0 MMOL/L (3.5-5.1) Chloride Level 101 MMOL/L (98-107) Carbon Dioxide Level 24 MMOL/L (21-32) Anion Gap 14 mmol/L (5-15) Blood Urea Nitrogen 16 mg/dL (7-18) Creatinine 1.2 MG/DL (0.55-1.30) Estimat Glomerular Filtration Rate > 60 mL/min (>60) Glucose Level 108 MG/DL (74-106) H Calcium Level 10.2 MG/DL (8.5-10.1) H Total Bilirubin 0.8 MG/DL (0.2-1.0) Aspartate Amino Transf (AST/SGOT) 81 U/L (15-37) H Alanine Aminotransferase (ALT/SGPT) 47 U/L (12-78) Alkaline Phosphatase 86 U/L (46-116) Total Creatine Kinase 894 U/L (26-308) H Creatine Kinase MB 74.4 NG/ML (0.0-3.6) H Creatine Kinase MB Relative Index 8.3 Troponin I 19.701 ng/mL (0.000-0.056) 34.547 ng/mL (0.000-0.056) Total Protein 8.8 G/DL (6.4-8.2) H Albumin 3.8 G/DL (3.4-5.0) Globulin 5.0 g/dL Albumin/Globulin Ratio 0.8 (1.0-2.7) L Urine Opiates Screen Negative (NEGATIVE) Urine Barbiturates Screen Negative (NEGATIVE) Phencyclidine (PCP) Screen Negative (NEGATIVE) Urine Amphetamines Screen Negative (NEGATIVE) Urine Benzodiazepines Screen Negative (NEGATIVE) Urine Cocaine Screen Negative (NEGATIVE) Urine Marijuana (THC) Screen Positive (NEGATIVE) H Erythrocyte Sedimentation Rate 11 MM/HR (0-15) D-Dimer 0.65 mg/L FEU (0.00-0.49) H C-Reactive Protein, Quantitative 18.3 mg/dL (0.00-0.90) H HIV (1&2) Antibody Rapid Negative (NEGATIVE) Test 12/31/18 20:55 01/01/19 01:50 Troponin I 18.869 ng/mL (0.000-0.056) 31.573 ng/mL (0.000-0.056) White Blood Count 16.9 K/UL (4.8-10.8) #H Red Blood Count 5.50 M/UL (4.70-6.10) Hemoglobin 16.2 G/DL (14.2-18.0) Hematocrit 47.0 % (42.0-52.0) Mean Corpuscular Volume 85 FL (80-99) Mean Corpuscular Hemoglobin 29.4 PG (27.0-31.0) Mean Corpuscular Hemoglobin Concent 34.4 G/DL (32.0-36.0) Red Cell Distribution Width 12.2 % (11.6-14.8) Platelet Count 308 K/UL (150-450) # Mean Platelet Volume 7.6 FL (6.5-10.1) Neutrophils (%) (Auto) 81.3 % (45.0-75.0) H Lymphocytes (%) (Auto) 9.0 % (20.0-45.0) L Monocytes (%) (Auto) 8.3 % (1.0-10.0) Eosinophils (%) (Auto) 0.0 % (0.0-3.0) Basophils (%) (Auto) 1.4 % (0.0-2.0) Sodium Level 138 MMOL/L (136-145) Potassium Level 4.2 MMOL/L (3.5-5.1) Chloride Level 104 MMOL/L (98-107) Carbon Dioxide Level 23 MMOL/L (21-32) Anion Gap 12 mmol/L (5-15) Blood Urea Nitrogen 14 mg/dL (7-18) Creatinine 0.9 MG/DL (0.55-1.30) Estimat Glomerular Filtration Rate > 60 mL/min (>60) Glucose Level 149 MG/DL (74-106) H Calcium Level 9.6 MG/DL (8.5-10.1) Rafal Urbina MD Jan 01, 2019 08:12
--- NOTE | 2019-01-01 12:13 | Diagnostic Imaging Report ---
Indication: Chest pain Technique: A ventilation/perfusion scan was performed. Ventilation was performed utilizing 40 mCi of Technetium 99m-DTPA. Perfusion was performed with 5.5 mCi of technetium 99m-MAA injected intravenously. Multiple side by side projections obtained. Findings: Ventilation is relatively homogeneous. No defects are identified. Perfusion is relatively homogeneous. No defects are identified. Impression: Low probability for pulmonary embolus
[2019-01-01] MEDS ORDERED: Aspirin Baby 81mg ORAL SCH (15:30)
--- NOTE | 2019-01-01 15:49 | Discharge Summary ---
Discharge Summary Hospital Course Date of Admission Dec 31, 2018 at 14:04 Date of Discharge 01/01/19 Admitting Diagnosis Myocarditis HPI Luis Pennington is a 23 year old male who was admitted on Dec 31, 2018 at 14:04 for Myocarditis Consultations Cardiology, ICU Hospital Course Patient presented with URI/asthma type symptoms. Noted to have ischemic EKG changes and elevated troponin levels. Admitted to ICU for likely myopericarditis from viral infection. Patient was hemodynamically stable throughout the hospital stay. Seen by child care assistant and Cardiology, felt to require higher level of care and finnegan is for transfer to [facility] once bed is available. Discharge Discharge Disposition Patient was discharged to acute care hospital Umer Eckert MD Jan 01, 2019 15:49
--- NOTE | 2019-01-01 15:55 | Diagnostic Imaging Report ---
APPROVED REPORT CPT Code: 59933 Present Symptoms Comments: Chest Pain BILATERAL: Imaging reveals a patent deep venous system bilaterally. There is no evidence of thrombus within the femoral, popliteal or tibial segments. The greater saphenous veins are also within normal limits. Doppler indicates normal spontaneous flow within these segments.
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
[2019-01-01] MEDS ORDERED: Heparin 25,000u/D5W 500ml 500 ML IV SCH (17:15)
[2019-01-01] MEDS ORDERED: NS 275ml ONE (18:59)
[2019-01-02] MEDS ORDERED: Aspirin EC 81mg tab ORAL SCH (09:00)
--- NOTE | 2019-01-02 23:36 | Cardiology Report ---
APPROVED REPORT EKG Measurement Heart [id number] [place] [id number] [id number] Normal sinus rhythm with sinus arrhythmia ST elevation, probably due to early repolarization Borderline ECG
--- NOTE | 2019-01-02 23:38 | Cardiology Report ---
APPROVED REPORT EKG Measurement Heart [id number] ID [id number] Normal sinus rhythm with sinus arrhythmia Normal ECG
--- NOTE | 2019-01-02 23:40 | Cardiology Report ---
APPROVED REPORT EKG Measurement Heart [id number] [place] 152P65 [id number] Normal sinus rhythm with sinus arrhythmia Possible lateral infarction, age undetermined Early repolarization Normal ECG
== END 2019-01-01 19:00 | disposition left against medical advice (07) | DRG 207 ==
LOC: EMR 08:54 → EDBEDREQSVC 12:59 → EDBEDREQ 12:59 → ICU 14:04 → EDBEDREQ 14:22
DX: I40.0 Infective myocarditis (principal); D72.829 Elevated white blood cell count, unspecified; F12.90 Cannabis use, unspecified, uncomplicated; J45.20 Mild intermittent asthma, uncomplicated; R21 Rash and other nonspecific skin eruption; Z53.21 Procedure and treatment not carried out due to patient leaving prior to being seen by health care provider
CPT/HCPCS: 36415; 71045; 78579; 78580; 80048; 80053; 80307; 82550; 82553; 84484; 85007; 85025; 85060; 85379; 85651; 85730; 86021; 86039; 86140; 86200; 86431; 86703; 87081; 93005; 93306; 93970; 94640; 94664; 94760; 99291; A9503; J2405